=== PATIENT | male | born 1950 | race Caucasian/White ===

== ENCOUNTER 2017-04-29 11:42 | Emergency (ER) | payer OTHER, BC ==
[~2017-04-29] VITALS: Ht 175.3 cm; Wt 101.0 kg
[2017-04-29 11:44] VITALS: BP 144/94; PULSE 100; RESP 16; TEMP 98.5; O2SAT 95
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
[2017-04-29] MEDS ORDERED: ORPH100T99 PO (13:16)
[2017-04-29] MEDS ORDERED: IBUP-232 PO (13:16)
[2017-04-29] MEDS ORDERED: NON-500T13 PO (13:16)
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
== END 2017-04-29 14:16 | disposition home or self-care (01) ==
LOC: NEPK 11:42
DX: Z04.1 Encounter for examination and observation following transport accident (principal); S80.211A Abrasion, right knee, initial encounter; S80.212A Abrasion, left knee, initial encounter; V43.52XA Car driver injured in collision with other type car in traffic accident, initial encounter
CPT/HCPCS: 70450; 99284